=== PATIENT | female | born 2000 | race African-American/Black ===

== ENCOUNTER 2019-06-04 17:37 | Emergency (ER) | payer OTHER ==
[~2019-06-04] VITALS: Ht 162.6 cm; Wt 96.1 kg
[2019-06-04 17:38] VITALS: BP 112/68
[2019-06-04] MEDS ORDERED: KETOROLAC TROMETHAMINE 10 MG TAB PO ONE (18:45)
[2019-06-04] MEDS ORDERED: BACT800T5 PO (19:51)
[2019-06-04] MEDS ORDERED: DIFL150T PO (21:40)
== END 2019-06-04 20:14 | disposition home or self-care (01) ==
LOC: M ED 17:37
DX: N39.0 Urinary tract infection, site not specified (principal)

== ENCOUNTER 2019-08-06 19:25 | Emergency (ER) | payer OTHER ==
[~2019-08-06] VITALS: Ht 162.6 cm; Wt 96.4 kg
[~2019-08-06 19:25] MED LIST: BACT800T5 PO; DIFL150T PO
[2019-08-06 20:38] LABS: MONO REFLEX EBV COMP NEGATIVE (NEGATIVE)
[2019-08-06 20:56] VITALS: BP 138/82
[2019-08-06] MEDS ORDERED: IBUPROFEN 600 MG TAB PO ONE (21:00)
[2019-08-10 00:07] LABS: EBV AB TO NUCLEAR ANTIGEN >600.0 U/mL (0.0-17.9); EBV VIRAL CAPSID AG IgG 91.6 U/mL (0.0-17.9); EBV VIRAL CAPSID AG IgM <36.0 U/mL (0.0-35.9)
== END 2019-08-06 21:04 | disposition home or self-care (01) ==
LOC: M ED 19:25
DX: J02.9 Acute pharyngitis, unspecified (principal)

== ENCOUNTER 2019-08-08 16:27 | Emergency (ER) | payer OTHER ==
[~2019-08-08] VITALS: Ht 162.6 cm; Wt 96.6 kg
[2019-08-08 16:27] VITALS: BP 128/85
[2019-08-08] MEDS ORDERED: PENI500T PO (18:06)
[2019-08-08] MEDS ORDERED: BENA25CA4 PO (18:07)
[2019-08-08] MEDS ORDERED: PENICILLIN V POTASSIUM 500 MG TAB PO ONE (18:15)
[2019-08-08] MEDS ORDERED: diphenhydrAMINE 50 MG CAP PO ONE (18:15)
== END 2019-08-08 18:21 | disposition home or self-care (01) ==
LOC: M ED 16:27
DX: J02.0 Streptococcal pharyngitis (principal); B09 Unspecified viral infection characterized by skin and mucous membrane lesions

== ENCOUNTER 2019-09-11 15:19 | Emergency (ER) | payer OTHER ==
[~2019-09-11] VITALS: Ht 162.6 cm; Wt 97.5 kg
[~2019-09-11 15:19] MED LIST changes: +BENA25CA4 PO; +PENI500T PO
[2019-09-11] MEDS ORDERED: DIFL150T PO (16:15)
[2019-09-11 16:48] VITALS: BP 131/69
[2019-09-11 17:43] LABS: CHLAMYDIA DNA AMPLIFICATION NEGATIVE (NEGATIVE); GC DNA AMPLIFICATION NEGATIVE (NEGATIVE)
== END 2019-09-11 16:49 | disposition home or self-care (01) ==
LOC: M ED 15:19
DX: B37.3 Candidiasis of vulva and vagina (principal); E28.2 Polycystic ovarian syndrome

== ENCOUNTER 2020-01-04 07:40 | Emergency (ER) | payer OTHER ==
[2020-02-13 13:53] LABS: CHLAMYDIA DNA AMPLIFICATION NEGATIVE (NEGATIVE); GC DNA AMPLIFICATION NEGATIVE (NEGATIVE)
[2020-02-19 07:49] LABS: BASO % 0.3 % (0.0-1.0); EOS # 0.3 10^3/uL (0.0-0.5); EOS % 2.6 % (0.0-3.0); HEMATOCRIT 41.8 % (36.0-47.0); HEMOGLOBIN 13.4 g/dl (12.0-15.5); LYMPH # 2.5 10^3/uL (1.5-5.0); LYMPH % 20.4 % (24.0-44.0); MEAN CORPUSCULAR HEMOGLOBIN 27.1 pg (27.0-33.0); MEAN CORPUSCULAR HGB CONC 32.1 g/dl (32.0-36.5); MEAN CORPUSCULAR VOLUME 84.6 fl (80.0-96.0); MONO # 0.5 10^3/uL (0.0-0.8); MONO % 4.4 % (0.0-5.0); NEUTROPHILS # 8.7 10^3/uL (1.5-8.5); NEUTROPHILS % 72.1 % (36.0-66.0); PLATELET COUNT, AUTOMATED 336 10^3/uL (150-450); RED BLOOD COUNT 4.94 10^6/uL (4.00-5.40)
[2020-02-19 08:54] LABS: APPEARANCE, URINE CLOUDY (CLEAR); BACTERIA, URINE AUTO NEGATIVE (NEGATIVE); BILIRUBIN, URINE AUTO NEGATIVE (NEGATIVE); BLOOD, URINE BLOOD 3+ (NEGATIVE); COLOR, URINE YELLOW (YELLOW); GLUCOSE, URINE (UA) AUTO NEGATIVE (NEGATIVE); KETONE, URINE AUTO NEGATIVE (NEGATIVE); LEUKOCYTE ESTERASE, URINE AUTO 3+ (NEGATIVE); MUCUS, URINE SMALL (NEGATIVE); NITRITE, URINE AUTO NEGATIVE (NEGATIVE); PROTEIN, URINE AUTO NEGATIVE (NEGATIVE); RBC, URINE AUTO 11 /HPF (0-3); SPECIFIC GRAVITY URINE AUTO 1.003 (1.002-1.035); SQUAMOUS EPITHELIAL CELL UR AU 2 /HPF (0-6); UROBILINOGEN, URINE AUTO 0.2 mg/dL (0.0-2.0); WBC, URINE AUTO TNTC /HPF (0-3)
[2020-03-15 14:07] LABS: HCG, SERUM QUALITATIVE NEGATIVE (NEGATIVE)
[2020-03-15 14:08] LABS: BLOOD UREA NITROGEN 6 MG/DL (7-18); CALCIUM LEVEL 9.4 MG/DL (8.5-10.1); CARBON DIOXIDE LEVEL 27 MEQ/L (21-32); CHLORIDE LEVEL 105 MEQ/L (98-107); CREATININE FOR GFR 0.69 MG/DL (0.55-1.30); GLOMERULAR FILTRATION RATE > 60.0 (>60); GLUCOSE, FASTING 84 MG/DL (70-100); HEPATITIS A ANTIBODY IGM NEGATIVE (NEGATIVE); HEPATITIS B CORE ANTIBODY IGM NEGATIVE (NEGATIVE); HEPATITIS B SURFACE ANTIGEN NEGATIVE (NEGATIVE); HEPATITIS C VIRUS ABY INDEX 0.2 INDEX (<0.8); HIV 1&2 SCREEN CENTAUR NEGATIVE (NEGATIVE); POTASSIUM SERUM 3.9 MEQ/L (3.5-5.1); SODIUM LEVEL 140 MEQ/L (136-145)
[2020-03-28] MEDS ORDERED: METF-877 PO (09:56)
== END 2020-01-04 14:15 | disposition home or self-care (01) ==
LOC: M ED 07:40
DX: N39.0 Urinary tract infection, site not specified (principal); N93.9 Abnormal uterine and vaginal bleeding, unspecified; N83.201 Unspecified ovarian cyst, right side; N83.202 Unspecified ovarian cyst, left side; Z97.5 Presence of (intrauterine) contraceptive device; Z91.013 Allergy to seafood; Z79.84 Long term (current) use of oral hypoglycemic drugs

== ENCOUNTER → 2020-01-25 | Outpatient (CLI) | payer OTHER ==
[~2020-01-25] MED LIST changes: +METF-877 PO
--- NOTE | 2020-02-22 13:14 | REP ---
NONCONTRAST HEAD CT: CLINICAL: Hyperprolactinemia TECHNIQUE: Axial noncontrast images from the skull base to the vertex with coronal reformations. FINDINGS: The ventricles, sulci and cisterns are symmetric and normal. Mendiola-white differentiation is maintained. No acute intracranial hemorrhage, mass or mass effect. No extra-axial fluid collection. The calvarium is intact. The paranasal sinuses and mastoid air cells are clear. Mid-brain structures are symmetric and normal. IMPRESSION: Normal noncontrast CT of the brain. MTDD
== END ==
LOC: M RAD 10:00
PROVIDERS: ATTEND Obstetrics & Gynecology
DX: E22.1 Hyperprolactinemia (principal)

== ENCOUNTER 2020-04-04 10:28 | Day surgery (SDC) | payer OTHER ==
[~2020-04-04] VITALS: Ht 162.6 cm; Wt 78.9 kg
[~2020-04-04 10:28] MED LIST changes: +LR 1,000 ML IV ONE
[2020-04-04 11:24] LABS: HEMATOCRIT 39.1 % (36.0-47.0); HEMOGLOBIN 12.5 g/dl (12.0-15.5); MEAN CORPUSCULAR HEMOGLOBIN 28.5 pg (27.0-33.0); MEAN CORPUSCULAR VOLUME 89.1 fl (80.0-96.0); PLATELET COUNT, AUTOMATED 324 10^3/uL (150-450); RED BLOOD COUNT 4.39 10^6/uL (4.00-5.40); WHITE BLOOD COUNT 6.9 10^3/uL (4.0-10.0)
[2020-04-04 11:35] LABS: BLOOD UREA NITROGEN 6 MG/DL (7-18); CALCIUM LEVEL 9.4 MG/DL (8.5-10.1); CARBON DIOXIDE LEVEL 26 MEQ/L (21-32); CHLORIDE LEVEL 108 MEQ/L (98-107); CREATININE FOR GFR 0.63 MG/DL (0.55-1.30); GLOMERULAR FILTRATION RATE > 60.0 (>60); GLUCOSE, FASTING 82 MG/DL (70-100); HCG, SERUM QUANTITATIVE < 1.0 MIU/ML; SODIUM LEVEL 140 MEQ/L (136-145)
[2020-04-04] MEDS ORDERED: LIDOCAINE 2% 100MG/5ML SDV (FOR ANES.) As Ordered ONE (13:24)
[2020-04-04] MEDS ORDERED: propofoL 200 MG/20 ML VIAL As Ordered ONE (13:24)
[2020-04-04] MEDS ORDERED: MIDAZOLAM INJ 2MG/2ML VIAL (J2250 PER 1MG) As Ordered ONE (13:24)
[2020-04-04] MEDS ORDERED: fentaNYL 100 MCG/2 ML INJECTION (J3010) As Ordered ONE ×3 (13:25→15:13)
[2020-04-04] MEDS ORDERED: BUPIVACAINE HCL 0.5% 10ML VIAL As Ordered ONE (13:35)
[2020-04-04] MEDS ORDERED: ACETAMINOPHEN 650 MG SUPP As Ordered ONE (13:35)
[2020-04-04] MEDS ORDERED: METHYLENE BLUE 0.5% (5MG/ML) 10 ML AMP (PROVAYBLUE) As Ordered ONE (13:35)
[2020-04-04] MEDS ORDERED: PARAGARD T380-A INTRAUTERINE DEVICE As Ordered ONE (13:35)
[2020-04-04] MEDS ORDERED: ROCURONIUM BROMIDE 50 MG/5 ML VIAL As Ordered ONE (13:50)
[2020-04-04] MEDS ORDERED: ESMOLOL INJ 100MG/10ML VIAL As Ordered ONE (14:08)
[2020-04-04] MEDS ORDERED: SUGAMMADEX SODIUM 500 MG/5 ML VIAL (BRIDION) As Ordered ONE (14:10)
[2020-04-04] MEDS ORDERED: ONDANSETRON 4MG/2ML VIAL As Ordered ONE (14:10)
[2020-04-04] MEDS ORDERED: dexameTHASONE 4 MG/ML 1ML VIAL (J1100 PER 1MG) As Ordered ONE (14:10)
[2020-04-04] MEDS ORDERED: KETOROLAC 60MG 2ML VIAL As Ordered ONE (14:10)
[2020-04-04] MEDS ORDERED: KETOROLAC 30 MG/ML 1ML VIAL IV PRN ×2 (14:48→16:15)
[2020-04-04] MEDS ORDERED: ONDANSETRON 4MG/2ML VIAL IV PRN (16:15)
[2020-04-04] MEDS ORDERED: LR 1,000 ML IV SCH (16:15)
[2020-04-04] MEDS ORDERED: METOCLOPRAMIDE INJ 10MG/2ML VIAL (J2765 PER 1) IV PRN (16:15)
[2020-04-04] MEDS ORDERED: fentaNYL 100 MCG/2 ML INJECTION (J3010) IV PRN (16:15)
[2020-04-04] MEDS ORDERED: PERCOCET 5MG/325MG TAB PO PRN (16:15)
[2020-04-04 17:30] VITALS: BP 117/69
--- NOTE | 2020-04-12 10:28 | RO ---
DATE OF OPERATION: 04/04/2020 PREOPERATIVE DIAGNOSIS: Persistent left lower quadrant pain and painful intrauterine contraceptive device (IUCD). POSTOPERATIVE DIAGNOSIS: Left ovarian cyst, simple, plus misplaced IUCD. OPERATION PROPOSED: Operative laparoscopy, possible left ovarian cystectomy and hysteroscopy, dilatation and curettage (D and C) removal and replacement of IUCD. OPERATION PERFORMED: Operative laparoscopy, aspiration of left ovarian cyst, and hysteroscopy, dilatation, removal of IUCD, and replacement of IUCD Mirena. ESTIMATED BLOOD LOSS: Less than 20 Ml. SURGEON: Dr. Mensah After adequate anesthesia, prepped and draped in the lithotomy position. Her catheter in the bladder draining clear urine. Acetaminophen suppository, 1300 mg per rectum. Sequentials in place. No antibiotics required. Weighed speculum in the vagina, single-tooth tenaculum on the anterior lip of cervix. Cervix was mobile but high up anteriorly. The strings of the IUCD were not visible. Uterine elevator was placed in the endocervical canal. Re-prepping and draping. Small subumbilical incision was made. Veress needle was applied. There was 3.8 liters of CO2 at a flow rate of 14 to a pressure of 15. Direct entry into the abdomen. No evidence of perforation, hemorrhage, or bleeding. Panoramic review. Right upper quadrant was normal. Liver edge was smooth. Left upper quadrant was normal. Right lower quadrant was normal. Right round ligament was normal. Uterus was anteverted, smooth, mobile, small. Anterior aspect of the bladder was clear. Left round ligament was normal. Left ovary showed a large cystic structure, which was the ovary incorporating a cyst, which is probably the etiology behind this lady's persistent left lower quadrant pain. The posterior cul-de-sac was clear. No evidence of adhesions or endometriosis. Patient did have some blood in the cul-de-sac, but she is presently menstruating. A 5 mm port was placed on the right side, and then with visualization a needle was placed into the cystic structure. We drained between 10-12 mL of clear fluid. The fluid was sent to pathology under separate cover. The ovary immediately deflated to almost normal size. It is larger on the left ovary than on the right ovary in spite of the fact it was deflated. It was mobile and no evidence of adhesion, endometriosis, or bleeding. With that done and with instrument and pad count correct, we aspirated the old blood from her period from the cul-de-sac. We then deflated to 4 mm pressure, removed the 5 mm port on the right side, removed the mainstem port, put subcuticular stitches in both areas. Marcaine 0.25% 10 mL to the appropriate sites and Steri-Strips were applied. Re-prepping and draping, the weighted speculum was placed in the vagina. The uterine elevator was removed. The cervix was dilated to a #7. Hysteroscope at a 30- degree angle was placed. With fluid, we irrigated and found that the IUCD was impinging on the left cornua. We removed the IUCD and replaced it with a copper IUCD. We cut the strings to 2 inches. With instrument and pad count correct, the hysteroscope was removed. We used 175 mL in, 175 mL out. Single-tooth tenaculum was removed. No evidence of active bleeding. The vagina was swept clean. The uterus was replaced in anatomical position. The Her catheter was removed, and the patient was sent to recovery in good condition. MERON
== END 2020-04-04 17:30 | disposition home or self-care (01) ==
LOC: M SDC 10:28
PROVIDERS: ATTEND Obstetrics & Gynecology
DX: N93.9 Abnormal uterine and vaginal bleeding, unspecified (principal); R10.2 Pelvic and perineal pain; E28.2 Polycystic ovarian syndrome; Z79.84 Long term (current) use of oral hypoglycemic drugs; Z91.018 Allergy to other foods; Z91.013 Allergy to seafood; Z91.011 Allergy to milk products
CPT/HCPCS: 36415; 49322; 58300; 58301; 58558; 80048; 84702; 85027; 88108; 88300; J1100; J1885; J2250; J2405; J3010; J7300; Q9968

== ENCOUNTER 2020-07-16 12:22 | Emergency (ER) | payer OTHER ==
[~2020-07-16] VITALS: Ht 162.6 cm; Wt 72.9 kg
[~2020-07-16 12:22] MED LIST changes: -LR 1,000 ML IV ONE
--- OUTSIDE RECORDS SUMMARY | 2020-07-16 12:28 | CCD ---
Author Author [facility] Organization [facility] Address Unknown Phone Unavailable Care Team Providers Care Government Instructor Name Role Phone Kenniff, P Jairon RPA-C Unavailable Unavailable Kenniff, P Jairon RPA-C Unavailable Unavailable Kenniff, P Jairon RPA-C Unavailable Unavailable Kenniff, P Jairon RPA-C Unavailable Unavailable Kenniff, P Jairon RPA-C Unavailable Unavailable Kenniff, P Jairon RPA-C Unavailable Unavailable Kenniff, P Jairon RPA-C Unavailable Unavailable Kenniff, P Jairon RPA-C Unavailable Unavailable Kenniff, P Jairon RPA-C Unavailable Unavailable Kenniff, P Jairon RPA-C Unavailable Unavailable Kenniff, P Jairon RPA-C Unavailable Unavailable Kenniff, P Jairon RPA-C Unavailable Unavailable Kenniff, P Jairon RPA-C Unavailable Unavailable Kenniff, P Jairon RPA-C Unavailable Unavailable Kenniff, P Jairon RPA-C Unavailable Unavailable Kenniff, P Jairon RPA-C Unavailable Unavailable Kenniff, P Jairon RPA-C Unavailable Unavailable Kenniff, P Jairon RPA-C Unavailable Unavailable Kenniff, P Jairon RPA-C Unavailable Unavailable Kenniff, P Jairon RPA-C Unavailable Unavailable Kenniff, P Jairon RPA-C Unavailable Unavailable Kenniff, P Jairon RPA-C Unavailable Unavailable DEMETRI FLETCHER MD Unavailable Unavailable DEMETRI FLETCHER MD Unavailable Unavailable Rk Barrios MD Unavailable Unavailable Rk Barrios MD Unavailable Unavailable Rk Barrios MD Unavailable Unavailable Rk Barrios MD Unavailable Unavailable Rk Barrios MD Unavailable Unavailable Rk Barrios MD Unavailable Unavailable Barrios, L Sanju COREAS Unavailable Unavailable Barrios, L Sanju COREAS Unavailable Unavailable Barrios, L Sanju COREAS Unavailable Unavailable Barrios, L Sanju COREAS Unavailable Unavailable Barrios, L Sanju COREAS Unavailable Unavailable Barrios, L Sanju COREAS Unavailable Unavailable Barrios, L Sanju COREAS Unavailable Unavailable Barrios, L Sanju COREAS Unavailable Unavailable Barrios, L Sanju COREAS Unavailable Unavailable Barrios, L Sanju COREAS Unavailable Unavailable Barrios, L Sanju COREAS Unavailable Unavailable Barrios, L Sanju COREAS Unavailable Unavailable Barrios, L Sanju COREAS Unavailable Unavailable Barrios, L Sanju COREAS Unavailable Unavailable Barrios, L Sanju COREAS Unavailable Unavailable Barrios, L Sanju COREAS Unavailable Unavailable Barrios, L Sanju COREAS Unavailable Unavailable Barrios, L Sanju COERAS Unavailable Unavailable Barrios, L Sanju COREAS Unavailable Unavailable Barrios, L Sanju COREAS Unavailable Unavailable Barrios, L Sanju OCREAS Unavailable Unavailable Barrios, L Sanju COREAS Unavailable Unavailable Barrios, L Sanju COREAS Unavailable Unavailable Barrios, L Sanju COREAS Unavailable Unavailable Barrios, L Sanju COREAS Unavailable Unavailable Barrios, L Sanju COREAS Unavailable Unavailable Barrios, L Sanju COREAS Unavailable Unavailable Barrios, L Sanju COREAS Unavailable Unavailable Barrios, L Sanju COREAS Unavailable Unavailable Barrios, L Sanju COREAS Unavailable Unavailable Barrios, L Sanju COREAS Unavailable Unavailable Barrios, L Sanju COREAS Unavailable Unavailable Barrios, L Sanju COREAS Unavailable Unavailable Barrios, L Sanju COREAS Unavailable Unavailable Barrios, L Sanju COREAS Unavailable Unavailable Barrios, L Sanju COREAS Unavailable Unavailable Barrios, L Sanju COREAS Unavailable Unavailable Barrios, L Sanju COREAS Unavailable Unavailable Barrios, Rk Bills MD Unavailable Unavailable Barrios, L Sanju COREAS Unavailable Unavailable Barrios, Rk Bills MD Unavailable Unavailable Barrios, Rk Bills MD Unavailable Unavailable Zo INGRAM MD Unavailable Unavailable Zo INGRAM MD Unavailable Unavailable Zo INGRAM MD Unavailable Unavailable Zo INGRAM MD Unavailable Unavailable Zo INGRAM MD Unavailable Unavailable Zo INGRAM MD Unavailable Unavailable Zo INGRAM MD Unavailable Unavailable Zo INGRAM MD Unavailable Unavailable Zo INGRAM MD Unavailable Unavailable Zo INGRAM MD Unavailable Unavailable Zo INGRAM MD Unavailable Unavailable Zo INGRAM MD Unavailable Unavailable Zo INGRAM MD Unavailable Unavailable Zo INGRAM MD Unavailable Unavailable Zo INGRAM MD Unavailable Unavailable Zo INGRAM MD Unavailable Unavailable Zo INGRAM MD Unavailable Unavailable Zo INGRAM MD Unavailable Unavailable Zo INGRAM MD Unavailable Unavailable Zo INGRAM MD Unavailable Unavailable Zo INGRAM MD Unavailable Unavailable Zo INGRAM MD Unavailable Unavailable Zo INGRAM MD Unavailable Unavailable Zo INGRAM MD Unavailable Unavailable Zo INGRAM MD Unavailable Unavailable Zo INGRAM MD Unavailable Unavailable Zo INGRAM MD Unavailable Unavailable Zo INGRAM MD Unavailable Unavailable Zo INGRAM MD Unavailable Unavailable Zo INGRAM MD Unavailable Unavailable Zo INGRAM MD Unavailable Unavailable Zo INGRAM MD Unavailable Unavailable Zo INGRAM MD Unavailable Unavailable Zo INGRAM MD Unavailable Unavailable Zo INGRAM MD Unavailable Unavailable Zo INGRAM MD Unavailable Unavailable Zo INGRAM MD Unavailable Unavailable Zo INGRAM MD Unavailable Unavailable Zo INGRAM MD Unavailable Unavailable Zo INGRAM MD Unavailable Unavailable Zo INGRAM MD Unavailable Unavailable Zo INGRAM MD Unavailable Unavailable Zo INGRAM MD Unavailable Unavailable Zo INGRAM MD Unavailable Unavailable Zo INGRAM MD Unavailable Unavailable Zo INGRAM MD Unavailable Unavailable Zo INGRAM MD Unavailable Unavailable Zo INGRAM MD Unavailable Unavailable Zo INGRAM MD Unavailable Unavailable Zo INGRAM MD Unavailable Unavailable Zo INGRAM MD Unavailable Unavailable Zo INGRAM MD Unavailable Unavailable Zo INGRAM MD Unavailable Unavailable Zo INGRAM MD Unavailable Unavailable Zo INGRAM MD Unavailable Unavailable Zo INGRAM MD Unavailable Unavailable Zo INGRAM MD Unavailable Unavailable Zo INGRAM MD Unavailable Unavailable Zo INGRAM MD Unavailable Unavailable Zo INGRAM MD Unavailable Unavailable Zo INGRAM MD Unavailable Unavailable Zo INGRAM MD Unavailable Unavailable Zo INGRAM MD Unavailable Unavailable Zo INGRAM MD Unavailable Unavailable Zo INGRAM MD Unavailable Unavailable Zo INGRAM MD Unavailable Unavailable Zo INGRAM MD Unavailable Unavailable Zo INGRAM MD Unavailable Unavailable Zo INGRAM MD Unavailable Unavailable Zo INGRAM MD Unavailable Unavailable Zo INGRAM MD Unavailable Unavailable oZ INGRAM MD Unavailable Unavailable Zo INGRAM MD Unavailable Unavailable Re-disclosure Warning The records that you are about to access may contain information from federally-assisted alcohol or drug abuse programs. If such information is present, then the following federally mandated warning applies: This information has been disclosed to you from records protected by federal confidentiality rules (42 CFR part 2). The federal rules prohibit you from making any further disclosure of this information unless further disclosure is expressly permitted by the written consent of the person to whom it pertains or as otherwise permitted by 42 CFR part 2. A general authorization for the release of medical or other information is NOT sufficient for this purpose. The Federal rules restrict any use of the information to criminally investigate or prosecute any alcohol or drug abuse patient.The records that you are about to access may contain highly sensitive health information, the redisclosure of which is protected by Article 27-F of the [facility] Public Health law. If you continue you may have access to information: Regarding HIV / AIDS; Provided by facilities licensed or operated by the [facility] Office of Mental Health; or Provided by the [facility] Office for People With Developmental Disabilities. If such information is present, then the following [facility] mandated warning applies: This information has been disclosed to you from confidential records which are protected by state law. State law prohibits you from making any further disclosure of this information without the specific written consent of the person to whom it pertains, or as otherwise permitted by law. Any unauthorized further disclosure in violation of state law may result in a fine or residential sentence or both. A general authorization for the release of medical or other information is NOT sufficient authorization for further disc losure. Encounters Encounter Providers Location Date Indications Data Source(s ) Outpatient Attender: NATE Delgado: Jairon carbajal RPA-Berry 08/09/2020 12:00:00 AM [facility] Outpatient Attender: NATE Delgado: Jairon CALDWELL 07/04/2020 12:00:00 AM [facility] Outpatient Attender: NATE Delgado: Jairon CALDWELL 07/03/2020 12:00:00 AM [facility] Outpatient Attender: NATE INGRAM MD 06/21/2020 12:00:00 A [facility] Outpatient Attender: Sanju Barrios MD Physical Therapy 05/09/2020 0 9:15:00 AM EST [facility] ([facility]) Outpatient Attender: Sanju Barrios MD Physical Therapy 03/14/2020 0 1:00:00 PM EDT [facility] ([facility]) OFFICE OUTPATIENT NEW 30 MINUTES Attender: Sanju Barrios MD Physic al Therapy 02/01/2020 12:00:00 PM EDT [facility] ([facility]) Outpatient Attender: DEMETRI FLETCHER MD 09:09:00 AM EDT - 01/10/2020 10:09:00 AM EDT [facility] Insurance Providers Payer name Policy type / Coverage type Policy ID Covered democrat ID Covered democrat's relationship to greer Policy Greer Plan Information [employer] [id number] SP [id number] U [id number] Self [id number] U [id number] Self [id number] U [id number] Self [id number] EAST HUMANA - O/P [id number] 18 [id number] Problems, Conditions, and Diagnoses Code Display Name Description Problem Type Effective Dates Data Source(s) J72490 Pain in left hip Pain in left hip Diagnosis 01/10/2020 09 :09:00 AM EDT [facility] [id number] Pain in right hip Pain in right hip Diagnosis 01/10/2020 09:09:00 AM EDT [facility] Surgeries/Procedures Procedure Description Date Indications Data Source(s) INJECTION 1 TENDON SHEATH/LIGAMENT APONEUROSIS 020 12:00:00 AM EDT [facility] ([facility]) Results ID Date Data Source [id number] 06/14/2020 09:35:00 AM EST [facility] Name Value Range Interpretation Code Description Data Jennifer rce(s) Supporting Document(s) SARS coronavirus 2 RNA Not Detected [facility] This lab was ordered by [facility] Laboratory and reported by [facility]. ID Date Data Source [id number] 01/13/2020 09:53:00 AM EDT [facility] [address] [place] [address] PHONE: [phone] FAX: [phone] Name .................. : HIRAM Canas [facility] Number.................. : [id number] ROOM. ................. : Number ................... : [id number] Stay type ............. : O/P Discharge Date......... ... : 01/10/20 Admit Date ....... .. : 01/10/20 Admit Phys .................... : FLETCHER COR Date of ....... : 2000 Family Phys ................... : UNKNOWN CO Phone .................. : [phone] Age ................................ : 19 Film# .................. .:[id number] Sex ................................. : F Unsigned transcriptions are preliminary reports and do not represent a medical or legal document MRI LOWER EXT ANY JT W CONT R [id number] COMPLETE:01/10/20 12:08 [facility] [id number] (REASON FOR PROCESS: PAIN MRI OF THE RIGHT HIP WITH CONTRAST: FINDINGS: Prior to the MRI, the patient underwent a hip arthrogram. Multiple imaging of the hip was acquired. No evidence of a fracture or dislocation. The labrum is unremarkable. No abnormal marrow signal. No evidence of any osseous or soft tissue abnormality. Surrounding musculature is unremarkable. IMPRESSION: Unremarkable MRI right hip with intra-articular c ontrast. No labral injury. No loose body. No osseous abnormality. Electronically Reviewed and Signed By Nate Ortiz MD , 01/13/20 09:53, ADALID Transcribe Initials: RAQUEL , Transcribe Date: 01/10/20 22:41, Dictation Date: Copy for: JUSTINE MOSQUERA Copy for: [facility] REC Page 1 of 1 Name Value Range Interpretation Code Description Data Jennifer rce(s) Supporting Document(s) ID Date Data Source [id number] 01/13/2020 09:14:00 AM EDT [facility] [address] [place] [address] PHONE: [phone] FAX: [phone] Name .................. : HIRAM Canas Acct Number.................. : [id number] ROOM. ................. : MR Number ................... : [id number] Stay type ............. : O/P Discharge Date......... ... : 01/10/20 Admit Date ....... .. : 01/10/20 Admit Phys .................... : FLETCHER COR Date of ....... : 2000 Family Phys ................... : UNKNOWN CO Phone .................. : [phone] Age ................................ : 19 Film# .................. .:[id number] Sex ................................. : F Unsigned transcriptions are preliminary reports and do not represent a medical or legal document MRI LOWER EXT ANY JT W CONT [id number] COMPLETE:01/10/20 12:08 [facility] [address]441 (REASON FOR PROCESS: PAIN MRI LEFT HIP WITH CONTRAST, 01/10/20: FINDINGS: Imaging was performed following intraarticular gadolinium administration. Fracture, destructive osseous lesion, or osteonecrosis is not identified. Musculotendinous structures adjacent to the left hip are unremarkable. There is no bursal fluid collection. Labral tear is not identified. IMPRESSION: Unremarkable MRI of the left hip after intraarticular gadolinium administration. Electronically Reviewed and Signed By Ivonne Morelos MD , 01/13/20 09:14, KGMartinez Transcribe Initials: JHOANA, Transcribe Date: 01/11/20 11:56, Dictation Date: Copy for: JUSTINE MOSQUERA Copy for: [address] [place] [address] REC Page 1 of 1 Name Value Range Interpretation Code Description Data Jennifer rce(s) Supporting Document(s) ID Date Data Source [id number] 01/13/2020 08:57:00 [place] [address] PHONE: [phone] FAX: [phone] Name .................. : HIRAM Canas Acct Number.................. : [id number] ROOM. ................. : MR Number ................... : [id number] Stay type ............. : O/P Discharge Date......... ... : 01/10/20 Admit Date ....... .. : 01/10/20 Admit Phys .................... : JUSTINE SANTOS Date of ....... : 2000 Family Phys ................... : UNKNOWN CO Phone .................. : [phone] Age ................................ : 19 Film# .................. .:[id number] Sex ................................. : F Unsigned transcriptions are preliminary reports and do not represent a medical or legal document INJECTION FOR HIP ARTHROGRAM [id number] COMPLETE:01/10/20 10:39 [facility] [address] REASON FOR EXAM: PAIN INJECTION FOR HIP ARTHROGRAM [id number] COMPLETE:01/10/20 10:39 [facility] [address] REASON FOR EXAM: PAIN FLUOROSCOPIC GUIDANCE FOR NEEDLE PLACEMENT PRE-MRI ARTHROGRAM: HISTORY: Patient presents for bilateral MRI arthrograms of both hips. The injection procedure pre-MRI was explained to this patient. When questioning about allergies, she state that she had had swelling of the eyes, li ps and throat with seafood. Although a seafood allergy is not felt to be a contraindication at this time to the use of iodinated contrast as it had in the past been previous associations. I explained to her that it would be very unlikely for her to have an issue with the small amount of intra-articular contrast utilized for the MRI arthrogram. A small amount of iodinated contrast is utilized only to assure intra-articular position of the needle. I told her if she did have any of these or other allergy symptoms, she should inform us immediately and through both right and left hip injections, she felt fine. I told her to do the same with the MRI if she developed symptoms and if she had any issues post MRI arthrogram, that she should contact her physician or go to the ER as needed. She was agreeable to this. For the left and right hips, patient is prepped and draped in the usual fashion. Lidocaine is instilled into the skin and subcutaneous tissues down to the level of the left and right hip joints. Confirmation of intra-articular position of the needle in both the left and right hips is done first with a small amount of lidocaine and then with a small amount (about 2 cc) of nonionic contrast. After this, approximately 10-15 cc of Gadolinium mixture is instilled into the left and right hip joint. The needle was removed. The patient tolerated the bilateral procedure well. Fluoroscopy time for the left hip was 26 seconds and for the right hip was 1 minute 6 seconds. IMPRESSION: Satisfactory bilateral MRI contrast instillation for MRI arthrogram procedure, as described above. Patient tolerated the procedures well. Page 1 of 2 [facility] [address] [place] [address] PHONE: [phone] FAX: [phone] Name .................. : HIRAM Canas Acct Number.................. : [id number] ROOM. ................. : MR Number ................... : [id number] Stay type ............. : O/P Discharge Date......... ... : 01/10/20 Admit Date ......... : 01/10/20 Admit Phys .................... : JUSTINE SANTOS Date of ....... : 2000 Family Phys ................... : UNKNOWN CO Phone .................. : [phone] Age ................................ : 19 Film# .................. .:[id number] Sex ................................. : F Unsigned transcriptions are preliminary reports and do not represent a medical or legal document INJECTION FOR HIP ARTHROGRAM [id number] COMPLETE:01/10/20 10:39 [facility] [address] REASON FOR EXAM: PAIN INJECTION FOR HIP ARTHROGRAM [id number] COMPLETE:01/10/20 10:39 [facility] [address] REASON FOR EXAM: PAIN Please see additional comments as above. Electronically Reviewed and Signed By Xiomara Milligan MD , 01/13/20 08:57, LAD Transcribe Initials: DZ , Transcribe Date: 01/10/20 17:22, Dictation Date: Copy for: JUSTINE MOSQUERA Copy for: [address] [place] [address] REC Page 2 of 2 Name Value Range Interpretation Code Description Data Jennifer rce(s) Supporting Document(s) ID Date Data Source [id number] 01/13/2020 08:57:00 [place] [address] PHONE: [phone] FAX: [phone] Name .................. : HIRAM Canas Acct Number.................. : [id number] ROOM. ................. : MR Number ................... : [id number] Stay type ............. : O/P Discharge Date......... ... : 01/10/20 Admit Date ....... .. : 01/10/20 Admit Phys .................... : JUSTINE SANTOS Date of ....... : 2000 Family Phys ................... : UNKNOWN CO Phone .................. : [phone] Age ................................ : 19 Film# .................. .:[id number] Sex ................................. : F Unsigned transcriptions are preliminary reports and do not represent a medical or legal document INJECTION FOR HIP ARTHROGRAM [id number] COMPLETE:01/10/20 10:39 [facility] [address] REASON FOR EXAM: PAIN INJECTION FOR HIP ARTHROGRAM [id number] COMPLETE:01/10/20 10:39 [facility] [address] REASON FOR EXAM: PAIN FLUOROSCOPIC GUIDANCE FOR NEEDLE PLACEMENT PRE-MRI ARTHROGRAM: HISTORY: Patient presents for bilateral MRI arthrograms of both hips. The injection procedure pre-MRI was explained to this patient. When questioning about allergies, she state that she had had swelling of the eyes, li ps and throat with seafood. Although a seafood allergy is not felt to be a contraindication at this time to the use of iodinated contrast as it had in the past been previous associations. I explained to her that it would be very unlikely for her to have an issue with the small amount of intra-articular contrast utilized for the MRI arthrogram. A small amount of iodinated contrast is utilized only to assure intra-articular position of the needle. I told her if she did have any of these or other allergy symptoms, she should inform us immediately and through both right and left hip injections, she felt fine. I told her to do the same with the MRI if she developed symptoms and if she had any issues post MRI arthrogram, that she should contact her physician or go to the ER as needed. She was agreeable to this. For the left and right hips, patient is prepped and draped in the usual fashion. Lidocaine is instilled into the skin and subcutaneous tissues down to the level of the left and right hip joints. Confirmation of intra-articular position of the needle in both the left and right hips is done first with a small amount of lidocaine and then with a small amount (about 2 cc) of nonionic contrast. After this, approximately 10-15 cc of Gadolinium mixture is instilled into the left and right hip joint. The needle was removed. The patient tolerated the bilateral procedure well. Fluoroscopy time for the left hip was 26 seconds and for the right hip was 1 minute 6 seconds. IMPRESSION: Satisfactory bilateral MRI contrast instillation for MRI arthrogram procedure, as described above. Patient tolerated the procedures well. Page 1 of 2 [facility] [address] [place] [address] [place] [address] PHONE: [phone] FAX: [phone] Name .................. : HIRAM Canas Acct Number.................. : [id number] ROOM. ................. : Number ................... : [id number] Stay type ............. : O/P Discharge Date......... ... : 01/10/20 Admit Date ......... : 01/10/20 Admit Phys .................... : JUSTINE SANTOS Date of ....... : 2000 Family Phys ................... : UNKNOWN CO Phone .................. : [phone] Age ................................ : 19 Film# .................. .:[id number] Sex ................................. : F Unsigned transcriptions are preliminary reports and do not represent a medical or legal document INJECTION FOR HIP ARTHROGRAM [id number] COMPLETE:01/10/20 10:39 [facility] [address] REASON FOR EXAM: PAIN INJECTION FOR HIP ARTHROGRAM [id number] COMPLETE:01/10/20 10:39 [facility] [address] REASON FOR EXAM: PAIN Please see additional comments as above. Electronically Reviewed and Signed By Xiomara Milligan MD , 01/13/20 08:57, LAD Transcribe Initials: DZ , Transcribe Date: 01/10/20 17:22, Dictation Date: Copy for: JUSTINE BULLLIA Copy for: [facility] MED REC Page 2 of 2 Name Value Range Interpretation Code Description Data Jennifer rce(s) Supporting Document(s) ID Date Data Source [id number] 01/13/2020 08:56:00 AM EDT [facility] [address] [place] [address] PHONE: [phone] FAX: [phone] Name .................. : GANDHI GALINDO Canas Acct Number.................. : [id number] ROOM. ................. : MR Number ................... : [id number] Stay type ............. : O/P Discharge Date......... ... : 01/10/20 Admit Date ......... : 01/10/20 Admit Phys .................... : JUSTINE SANTOS Date of ....... : 2000 Family Phys ................... : UNKNOWN CO Phone .................. : [phone] Age ................................ : 19 Film# .................. .:[id number] Sex ................................. : F Unsigned transcriptions are preliminary reports and do not represent [place] [id number] COMPLETE:01/10/20 10:39 [facility] [address] (REASON FOR PELVIS: PAIN AP PELVIS: FINDINGS: Examination of the sales floor associate film shows an IUD in the mid-pelvis. The appearance of the bony structures of the pelvis and hips bilaterally are grossly unremarkable. The SI joints are patent and symmetrical as are the hip joints. Patient is to have bilateral hip arthrograms. Please see report of sales floor associate radiographs and injection procedure as well as the MRI evaluation of this patient for details. IMPRESSION: The study is a sales floor associate for bilateral MRI hip arthrograms. Please see the associated report for details. The appearance of the pelvis is grossly unremarkable, as described. Electronically Reviewed and Signed By Xiomara Milligan MD , 01/13/20 08:56, LENKA Transcribe Initials: RAQUEL , Transcribe Date: 01/10/20 15:52, Dictation Date: Copy for: JUSTINE MOSQUERA Copy for: 710 [facility] Page 1 of 1 Name Value Range Interpretation Code Description Data Jennifer rce(s) Supporting Document(s) Procedure Vital Signs ID Date Data Source UNK Name Value Range Interpretation Code Description Data Source(s) Body mass index (BMI) [Ratio] 31.8 kg/m2 31.8 k g/m2 [facility] ([facility]) Body weight 185.00 [lb_av] 185.00 [lb_av] MEDEN T ([facility]) Body height 64 [in_i] 64 [in_i] [facility] ([facility]) 5'4" Body temperature 96.2 [degF] 96.2 [degF] [facility] ([facility])
--- OUTSIDE RECORDS SUMMARY | 2020-07-16 12:28 | CCD | Continuity of Care Document ---
Author Author Anitha RADFORD MD Organization Unknown Address [address] [address] Phone [phone] Care Team Providers Care Senior Media Buyer Name Role Phone Laura Hopkins PA-CM [phone] Problems Description No Information Available Social History Type Date Description Comments Sex Unknown ETOH Use Rarely consumes alcohol Tobacco Use Start: Unknown Patient has never smoked Allergies, Adverse Reactions, Alerts Active Allergies Reaction Severity Comments Date Shellfish-Derived Products 0 02/01/2020 Medications Active Medications SIG Qnty Indications Ordering Provide r Date Tizanidine HCL 2mg Tablets Steve Larsen FNP Naproxen 375mg Tablets Steve Larsen FNP Lidocaine 5% Patches Steve Larsen FNP Epinephrine 0.3mg/0. 3ML Solution Auto-Inject La Nena Brooke F NP TGT Allergy Relief 25mg Capsules La Nena Brooke FNP Sore Throat 15-3.6mg Lozenges Unknown Sore Throat [place] 1.4% Liquid Unknown Acetaminophen 325mg Tablets Unknown Levonorgestrel 1.5mg Tablets Unknown Metformin HCL 500mg Tablets Olena Klein MD,MPH Mirena (52 MG) 20mcg/24HR IUD Olena Klein MD,MPH Montelukast Sodium 10mg Tablets La Nena Brooke FNP Deep Sea Nasal [place] 0.65% Solution La Nena Brooke, WAGON DRIVER SALESPERSON Cetirizine HCL 10mg Tablets La Nena Brooke, WAGON DRIVER SALESPERSON Metformin HCL 1000mg Tablets Olena Klein MD,MPH Ibuprofen 200mg Tablets Unknown Nitrofurantoin Monohydrate/Macrocrystals 100mg Capsules Mabel Colmenares PA-C Ondansetron HCL 4mg Tablets Steve Nichols PA-C Immunizations Description No Information Available Vital Signs Date Vital Result Comment 02/01/2020 12:10pm Body Temperature 96.2 F Height 64 inches 5'4" Weight 185.00 lb BMI (Body Mass Index) 31.8 kg/m2 Results Description No Information Available Procedures Date Code Description Status 02/01/2020 81889 Inject Tendon Sheath, Ligament C ompleted Medical Devices Description No Information Available Encounters Type Date Location Provider Dx Diagnosis Office Visit 05/09/2020 10:15a Kennertelma Radford MD M77.8 Other enthesopathies, not elsewhere classified Office Visit 03/14/2020 1:00p Kennertelma Radford MD M77.8 Other enthesopathies, not elsewhere classified Office Visit 02/01/2020 12:00p [place] Sanju Radford MD M67.431 Ganglion, right wrist Assessments Date Code Description Provider 05/09/2020 M77.8 Other enthesopathies, not elsewh ere classified Sanju Radford MD 03/14/2020 M77.8 Other enthesopathies, not elsewh ere classified Sanju Radford MD 03/14/2020 M77.8 Other enthesopathies, not elsewh ere classified Sanju Radford MD 02/01/2020 M67.431 Ganglion, right wrist Sanju angeles MD Plan of Treatment 05/09/2020 - Sanju Radford MD* M77.8 Other enthesopathies, not elsewhere classified* Follow up:* prn Functional Status Description No Information Available Mental Status Description No Information Available Referrals Refer to Reason for Referral Status Appt Date Sanju Radford MD DME APOLLO WRIST BRACE NO AUTH REQUIRED PER WEB. LS Created [address] [facility], [address] [address] [phone] Oliver Caballero MD GANGLION RIGHT WRIST Created [address] [place] [address] [phone] Oliver Caballero MD GANGLION RIGHT WRIST Created [address] [place] [address] [phone]
--- OUTSIDE RECORDS SUMMARY | 2020-07-16 12:28 | CCD | Continuity of Care Document ---
Author Author Anitha RADFORD MD Organization Unknown Address [address] [address] Phone [phone] Care Team Providers Care Stripping And Booking Machine Operator Name Role Phone Laura Hopkins PA-C AUTM [phone] Problems Description No Information Available Social History [...] Larsen FNP Lidocaine 5% Patches Steve Larsen ERP ANALYST Epinephrine 0.3mg/0. 3ML Solution Auto-Inject La Nena Brooke F NP TGT Allergy Relief 25mg Capsules La Nena Brooke FNP Sore Throat 15-3.6mg Lozenges Unknown Sore Throat [place] 1.4% Liquid Unknown Acetaminophen 325mg Tablets Unknown Levonorgestrel 1.5mg Tablets Unknown Metformin HCL 500mg Tablets Olena Klein MD,MPH Mirena (52 MG) 20mcg/24HR IUD Olena Klein MD,MPH Montelukast Sodium 10mg Tablets La Nena Brooke FNP Deep Sea Nasal [place] 0.65% Solution La Nena Brooke, ERP ANALYST Cetirizine HCL 10mg Tablets La Nena Brookera, ERP ANALYST Metformin HCL 1000mg Tablets Olena Klein MD,MPH [...] Available Procedures Date Code Description Status 02/01/2020 Inject Tendon Sheath, Ligament C ompleted Medical Devices Description No Information Available Encounters Type Date Location Provider Dx Diagnosis Office Visit 03/14/2020 1:00p [place] Sanju Radford MD M77.8 Other enthesopathies, not elsewhere classified Office Visit 02/01/2020 12:00p [place] Sanju Radford MD M67.431 Ganglion, right wrist [...] MD* M77.8 Other enthesopathies, not elsewhere classified* New Orders:* Referral, Ordered: 05/09/20 * Follow up:* prn Functional Status Description No Information Available Mental Status Description No Information Available Referrals Refer to Reason for Referral Status Appt Date Sanju Radford MD DME APOLLO WRIST BRACE NO AUTH REQUIRED PER WEB. LS Created [address] [facility], [address] [place] [address] [phone] Oliver Caballero MD GANGLION RIGHT WRIST Created [address] [facility], [facility] [address] [place] [address] [phone] Oliver Caballero MD GANGLION RIGHT WRIST Created [address] [place] [address], [facility] [address] [place] [address] [phone]
[2020-07-16] MEDS ORDERED: FLAG500T PO (13:52)
[2020-07-16] MEDS ORDERED: DIFL200T PO (13:58)
--- OUTSIDE RECORDS SUMMARY | 2020-07-16 14:11 | CCD ---
Author Author [facility] Organization [facility] Address Unknown Phone Unavailable Care Team Providers Care Wringer Operator Name Role Phone Kenemmaff, Calvin Jairon RPA-C Unavailable Unavailable Kenniff, P Jairon [...] Unavailable Unavailable Kenniff, P Jairon RPA-C Unavailable DEMETRI Amin MD Unavailable Unavailable DEMETRI FLETCHER MD Unavailable [...] Unavailable Barrios, L Sanju COREAS Unavailable Unavailable Abrrios, L Sanju COREAS Unavailable Unavailable Barrios, L [...] Unavailable Barrios, L Sanju COREAS Unavailable Unavailable Zo INGRAM MD Unavailable Unavailable Zo INGRAM MD Unavailable Unavailable Zo INGRAM MD Unavailable Unavailable Zo INGRAM MD Unavailable Unavailable Zo INGRAM MD Unavailable Unavailable Zo INGRAM MD Unavailable Unavailable Zo INGRAM MD Unavailable Unavailable Zo INGRAM MD Unavailable Unavailable Zo INGRAM MD Unavailable Unavailable Zo INGRAM MD Unavailable Unavailable Zo NIGRAM MD Unavailable Unavailable Zo INGRAM MD Unavailable [...] is protected by Article 27-F of the [facility] Public Health law. If you continue you may have access to information: Regarding HIV / AIDS; Provided by facilities licensed or operated by the [facility] Office of Mental Health; or Provided by the [facility] Office for People With Developmental Disabilities. If such information is present, then the following [facility] mandated warning applies: This information has been [...] law may result in a fine or retirement sentence or both. A general authorization for the release of medical or other information is NOT sufficient authorization for further disc losure. Encounters Encounter Providers Location Date Indications Data Source(s ) Outpatient Attender: NATE Delgado: Jairon carbajal RPA-Berry 08/09/2020 12:00:00 AM [facility] Outpatient Attender: NATE Delgado: Jairon CALDWELL 07/04/2020 12:00:00 AM [facility] Outpatient Attender: NATE Delgado: Jairon carbajal RPA-Berry 07/03/2020 12:00:00 AM [facility] Outpatient Attender: NATE INGRAM MD 06/21/2020 12:00:00 A [facility] Outpatient Attender: Sanju Barrios MD Physical Therapy 05/09/2020 0 9:15:00 AM EST [facility] ([facility]) Outpatient Attender: Sanju Barrios MD Physical Therapy 03/14/2020 0 1:00:00 PM EDT [facility] ([facility]) OFFICE OUTPATIENT NEW 30 MINUTES Attender: Sanju Barrios MD Physic al Therapy 02/01/2020 12:00:00 PM EDT [facility] ([facility]) Outpatient Attender: DEMETRI FLETCHER MD 09:09:00 AM EDT - 01/10/2020 10:09:00 AM EDT [facility] Insurance Providers Payer name Policy type / Coverage type Policy ID Covered libertarian ID Covered libertarian's relationship to greer Policy Greer Plan Information [employer] [id number] SP [id number] U [id number] Self [id number] U [id number] Self [id number] U [id number] Self [id number] [place] - O/P [id number] 18 [id number] Problems, Conditions, and Diagnoses Code Display Name Description Problem Type Effective Dates Data Source(s) A51800 Pain in left hip Pain in left hip Diagnosis 01/10/2020 09 :09:00 AM EDT [facility] J72517 Pain in right hip Pain in right hip Diagnosis 01/10/2020 09:09:00 AM EDT [facility] Surgeries/Procedures Procedure Description Date Indications Data Source(s) INJECTION 1 TENDON SHEATH/LIGAMENT APONEUROSIS 020 12:00:00 AM EDT [facility] ([facility]) Results ID Date Data Source [id number] 06/14/2020 09:35:00 AM EST [facility] Name Value Range Interpretation Code Description Data Jennifer rce(s) Supporting Document(s) SARS coronavirus 2 RNA Not Detected [facility] This lab was ordered by [facility] Laboratory and reported by [facility]. ID Date Data Source [id number] 01/13/2020 09:53:00 AM EDT [facility] [address] [place] [address] PHONE: [phone] FAX: [phone] Name .................. : HIRAM Canas [facility] Number.................. : [id number] ROOM. ................. : Number ................... : [id number] Stay type ............. : O/P Discharge Date......... ... : 01/10/20 Admit Date ....... .. : 01/10/20 Admit Phys .................... : FLETCHER COR Date of ....... : 2000 Family Phys ................... : UNKNOWN CO Phone .................. : [phone] Age ................................ : 19 Film# .................. .:[id number] Sex ................................. : F Unsigned transcriptions are preliminary reports and do not represent a medical or legal document MRI LOWER EXT ANY JT W CONT R [id number] COMPLETE:01/10/20 12:08 [facility] [id number] (REASON FOR PROCESS: PAIN MRI OF THE [...] MD , 01/13/20 09:53, ADALID Transcribe Initials: DZ , Transcribe Date: 01/10/20 22:41, Dictation Date: Copy for: JUSTINE MOSQUERA Copy for: [address] [facility] REC Page 1 of 1 Name Value Range Interpretation Code Description Data Jennifer rce(s) Supporting Document(s) ID Date Data Source [id number] 01/13/2020 09:14:00 AM EDT [facility] [address] [place] [address] PHONE: [phone] FAX: [phone] Name .................. : HIRAM Canas Acct Number.................. : [id number] ROOM. ................. : MR Number ................... : [id number] Stay type ............. : O/P Discharge Date......... ... : 01/10/20 Admit Date ....... .. : 01/10/20 Admit Phys .................... : JUSTINE SANTOS Date of ....... : 2000 Family Phys ................... : UNKNOWN CO Phone .................. : [phone] Age ................................ : 19 Film# .................. .:[id number] Sex ................................. : F Unsigned transcriptions are preliminary reports and do not represent a medical or legal document MRI LOWER EXT ANY JT W CONT [id number] COMPLETE:01/10/20 12:08 [facility] [id number] (REASON FOR PROCESS: PAIN MRI LEFT HIP [...] MD , 01/13/20 09:14, KGMartinez Transcribe Initials: SSR, Transcribe Date: 01/11/20 11:56, Dictation Date: Copy for: JUSTINE MOSQUERA Copy for: [address] [place] [address] REC Page 1 of 1 Name Value Range Interpretation Code Description Data Jennifer rce(s) Supporting Document(s) ID Date Data Source [id number] 01/13/2020 08:57:00 [place] [address] PHONE: [phone] FAX: [phone] Name .................. : HIRAM Canas Acct Number.................. : [id number] ROOM. ................. : MR Number ................... : [id number] Stay type ............. : O/P Discharge Date......... ... : 01/10/20 Admit Date ....... .. : 01/10/20 Admit Phys .................... : FLETCHER COR Date of ....... : 2000 Family Phys ................... : UNKNOWN CO Phone .................. : [phone] Age ................................ : 19 Film# .................. .:[id number] Sex ................................. : F Unsigned transcriptions are preliminary reports and do not represent a medical or legal document INJECTION FOR HIP ARTHROGRAM [id number] COMPLETE:01/10/20 10:39 [facility] [id number] REASON FOR EXAM: PAIN INJECTION FOR HIP ARTHROGRAM [id number] COMPLETE:01/10/20 10:39 [facility] [address] REASON FOR EXAM: PAIN FLUOROSCOPIC GUIDANCE FOR [...] the procedures well. Page 1 of 2 [facility] [address] [place] [address] PHONE: [phone] FAX: [phone] Name .................. : HIRAM MEDLEY Floresita Acct Number.................. : [id number] ROOM. ................. : Number ................... : [id number] Stay type ............. : O/P Discharge Date......... ... : 01/10/20 Admit Date ......... : 01/10/20 Admit Phys .................... : JUSTINE SANTOS Date of ....... : 2000 Family Phys ................... : UNKNOWN CO Phone .................. : [phone] Age ................................ : 19 Film# .................. .:[id number] Sex ................................. : F Unsigned transcriptions are preliminary reports and do not represent a medical or legal document INJECTION FOR HIP ARTHROGRAM [id number] COMPLETE:01/10/20 10:39 [facility] [address] REASON FOR EXAM: PAIN INJECTION FOR HIP ARTHROGRAM [id number] COMPLETE:01/10/20 10:39 [facility] [id number] REASON FOR EXAM: PAIN Please see additional comments as above. Electronically Reviewed and Signed By Xiomara Milligan MD , 01/13/20 08:57, LAD Transcribe Initials: DZ , Transcribe Date: 01/10/20 17:22, Dictation Date: Copy for: JUSTINE MOSQUERA Copy for: [address] [place] [address] REC Page 2 of 2 Name Value Range Interpretation Code Description Data Jennifer rce(s) Supporting Document(s) ID Date Data Source [id number] 01/13/2020 08:57:00 [place] [address] PHONE: [phone] FAX: [phone] Name .................. : HIRAM Canas Acct Number.................. : [id number] ROOM. ................. : MR Number ................... : [id number] Stay type ............. : O/P Discharge Date......... ... : 01/10/20 Admit Date ....... .. : 01/10/20 Admit Phys .................... : JUSTINE SANTOS Date of ....... : 2000 Family Phys ................... : UNKNOWN CO Phone .................. : [phone] Age ................................ : 19 Film# .................. .:[id number] Sex ................................. : F Unsigned transcriptions are preliminary reports and do not represent a medical or legal document INJECTION FOR HIP ARTHROGRAM [id number] COMPLETE:01/10/20 10:39 [facility] [id number] REASON FOR EXAM: PAIN INJECTION FOR HIP ARTHROGRAM 46004 COMPLETE:01/10/20 10:39 [facility] [address] REASON FOR EXAM: PAIN FLUOROSCOPIC GUIDANCE FOR [...] the procedures well. Page 1 of 2 [facility] [address] [place] [address] [place] [address] PHONE: [phone] FAX: [phone] Name .................. : HIRAM Canas Acct Number.................. : [id number] ROOM. ................. : Number ................... : [id number] Stay type ............. : O/P Discharge Date......... ... : 01/10/20 Admit Date ......... : 01/10/20 Admit Phys .................... : JUSTINE SANTOS Date of ....... : 2000 Family Phys ................... : UNKNOWN CO Phone .................. : [phone] Age ................................ : 19 Film# .................. .:[id number] Sex ................................. : F Unsigned transcriptions are preliminary reports and do not represent a medical or legal document INJECTION FOR HIP ARTHROGRAM [id number] COMPLETE:01/10/20 10:39 [facility] [id number] REASON FOR EXAM: PAIN INJECTION FOR HIP ARTHROGRAM [id number] COMPLETE:01/10/20 10:39 [facility] [id number] REASON FOR EXAM: PAIN Please see additional comments as above. Electronically Reviewed and Signed By Xiomara Milligan MD , 01/13/20 08:57, LAD Transcribe Initials: RAQUEL , Transcribe Date: 01/10/20 17:22, Dictation Date: Copy for: JUSTINE BULLLIA Copy for: [facility] Page 2 of 2 Name Value Range Interpretation Code Description Data Jennifer rce(s) Supporting Document(s) ID Date Data Source [id number] 01/13/2020 08:56:00 AM EDT [facility] [address] [place] [address] PHONE: [phone] FAX: [phone] Name .................. : HIRAM Canas Acct Number.................. : [id number] ROOM. ................. : MR Number ................... : [id number] Stay type ............. : O/P Discharge Date......... ... : 01/10/20 Admit Date ......... : 01/10/20 Admit Phys .................... : JUSTINE SANTOS Date of ....... : 2000 Family Phys ................... : UNKNOWN CO Phone .................. : [phone] Age ................................ : 19 Film# .................. .:[id number] Sex ................................. : F Unsigned transcriptions are preliminary reports and do not represent a [place] [id number] COMPLETE:01/10/20 10:39 [facility] [id number] (REASON FOR PELVIS: PAIN AP PELVIS: FINDINGS: Examination of the software development advisor film shows an IUD in the mid-pelvis. The appearance of the bony structures of the pelvis and hips bilaterally are grossly unremarkable. The SI joints are patent and symmetrical as are the hip joints. Patient is to have bilateral hip arthrograms. Please see report of software development advisor radiographs and injection procedure as well as the MRI evaluation of this patient for details. IMPRESSION: The study is a software development advisor for bilateral MRI hip arthrograms. Please see the associated report for details. The appearance of the pelvis is grossly unremarkable, as described. Electronically Reviewed and Signed By Xiomara Milligan MD , 01/13/20 08:56, LENKA Transcribe Initials: RAQUEL , Transcribe Date: 01/10/20 15:52, Dictation Date: Copy for: JUSTINE MOSQUERA Copy for: [address] [place] [address] Page 1 of 1 Name Value Range Interpretation Code Description Data Jennifer rce(s) Supporting Document(s) Procedure Vital Signs ID Date Data Source UNK Name Value Range Interpretation Code Description Data Source(s) Body mass index (BMI) [Ratio] 31.8 kg/m2 31.8 k g/m2 [facility] ([facility]) Body weight 185.00 [lb_av] 185.00 [lb_av] MEDEN T ([facility]) Body height 64 [in_i] 64 [in_i] [facility] ([facility]) 5'4" Body temperature 96.2 [degF] 96.2 [degF] [facility] ([facility])
[2020-07-16 14:15] VITALS: BP 116/66
[2020-07-16 15:11] LABS: CHLAMYDIA DNA AMPLIFICATION NEGATIVE (NEGATIVE); GC DNA AMPLIFICATION NEGATIVE (NEGATIVE)
== END 2020-07-16 14:16 | disposition home or self-care (01) ==
LOC: M ED 12:22
DX: N76.0 Acute vaginitis (principal); E28.2 Polycystic ovarian syndrome; Z91.011 Allergy to milk products; Z91.013 Allergy to seafood

== ENCOUNTER 2020-12-18 14:53 | Emergency (ER) | payer OTHER ==
[~2020-12-18] VITALS: Ht 162.6 cm; Wt 70.1 kg
[~2020-12-18 14:53] MED LIST changes: +DIFL200T PO; +FLAG500T PO
[2020-12-18 16:24] VITALS: BP 134/72
[2020-12-18 16:29] LABS: BASO % 0.5 % (0.0-1.0); EOS # 0.2 10^3/uL (0.0-0.5); EOS % 2.9 % (0.0-3.0); HEMATOCRIT 38.8 % (36.0-47.0); HEMOGLOBIN 12.3 g/dl (12.0-15.5); LYMPH % 39.3 % (24.0-44.0); MEAN CORPUSCULAR HGB CONC 31.7 g/dl (32.0-36.5); MEAN CORPUSCULAR VOLUME 85.1 fl (80.0-96.0); MONO # 0.3 10^3/uL (0.0-0.8); MONO % 3.6 % (2.0-8.0); NEUTROPHILS # 4.1 10^3/uL (1.5-8.5); NEUTROPHILS % 53.6 % (36.0-66.0); PLATELET COUNT, AUTOMATED 358 10^3/uL (150-450); RED BLOOD COUNT 4.56 10^6/uL (4.00-5.40); WHITE BLOOD COUNT 7.6 10^3/uL (4.0-10.0)
[2020-12-18 16:50] LABS: BLOOD UREA NITROGEN 8 MG/DL (7-18); CALCIUM LEVEL 9.5 MG/DL (8.5-10.1); CARBON DIOXIDE LEVEL 27 MEQ/L (21-32); CHLORIDE LEVEL 106 MEQ/L (98-107); CREATININE FOR GFR 0.77 MG/DL (0.55-1.30); GLOMERULAR FILTRATION RATE > 60.0 (>60); GLUCOSE, FASTING 80 MG/DL (70-100); POTASSIUM SERUM 4.1 MEQ/L (3.5-5.1); SODIUM LEVEL 139 MEQ/L (136-145)
[2020-12-18] MEDS ORDERED: KETOROLAC 60MG 2ML VIAL IM ONE (17:15)
--- NOTE | 2020-12-18 17:57 | REP ---
INDICATION: hx large ovarian cysts, period x 2 wks. COMPARISON: 01/04/2020 TECHNIQUE: Transvesical and transvaginal imaging FINDINGS: The uterus measures 8.2 x 3.8 x 4.1 cm. The parenchymal echo pattern is unchanged and again seen to be within normal limits. Once again, there is a specular reflection within the endometrial cavity consistent with an IUD. There is no free fluid in the cul-de-sac. Right ovary measures 4.8 x 3.1 x 4.2 cm. The right ovarian RI is 0.65. Within the right ovary there is a 3.8 x 3.5 x 2.2 cm sized anechoic structure which exhibits posterior wall enhancement and increased through transmission. The left ovary measures 2.1 x 1.1 x 1.7 cm and is within normal limits with an RI 0.54. Urinary bladder is empty. IMPRESSION: 1. Simple right ovarian cyst as described above. 2. IUD in place. <Electronically signed by Kofi Skinner > 12/18/20 [id number]
[2020-12-18] MEDS ORDERED: IBUP-1022 PO (18:57)
== END 2020-12-18 19:33 | disposition home or self-care (01) ==
LOC: M ED 14:53
DX: N92.0 Excessive and frequent menstruation with regular cycle (principal); N83.291 Other ovarian cyst, right side; Z97.5 Presence of (intrauterine) contraceptive device; E28.2 Polycystic ovarian syndrome; Z91.011 Allergy to milk products; Z91.013 Allergy to seafood; Z91.018 Allergy to other foods
CPT/HCPCS: 36415; 76830; 76856; 80048; 81001; 84702; 85025; 86850; 86900; 86901; 93976; 96372; 99284; J1885

== ENCOUNTER 2021-08-22 17:30 | Emergency (ER) | payer OTHER ==
[~2021-08-22] VITALS: Ht 162.6 cm; Wt 73.8 kg
[2021-08-22 17:30] VITALS: BP 135/67
[~2021-08-22 17:30] MED LIST changes: +IBUP-1022 PO
[2021-08-22] MEDS ORDERED: VITMTA PO (18:02)
== END 2021-08-22 21:20 | disposition left against medical advice (07) ==
LOC: M ED 17:30
DX: Z53.21 Procedure and treatment not carried out due to patient leaving prior to being seen by health care provider (principal)

== ENCOUNTER → 2021-08-27 | Outpatient (CLI) | payer OTHER ==
[~2021-08-27] MED LIST changes: +PROHANCE 279.3MG/ML 15ML VIAL As Ordered ONE; +VITMTA PO
== END ==
LOC: M RAD 15:13
PROVIDERS: ATTEND Obstetrics & Gynecology
DX: N83.202 Unspecified ovarian cyst, left side (principal)

== ENCOUNTER → 2022-02-12 | Outpatient (CLI) | payer OTHER ==
[~2022-02-12] MED LIST changes: -PROHANCE 279.3MG/ML 15ML VIAL As Ordered ONE
[2022-02-12 11:10] LABS: HEMATOCRIT 44.3 % (36.0-47.0); HEMOGLOBIN 14.5 g/dl (12.0-15.5); MEAN CORPUSCULAR HEMOGLOBIN 31.3 pg (27.0-33.0); MEAN CORPUSCULAR HGB CONC 32.7 g/dl (32.0-36.5); MEAN CORPUSCULAR VOLUME 95.5 fl (80.0-96.0); PLATELET COUNT, AUTOMATED 305 10^3/uL (150-450); RED BLOOD COUNT 4.64 10^6/uL (4.00-5.40); WHITE BLOOD COUNT 5.4 10^3/uL (4.0-10.0)
[2022-02-12 11:20] LABS: PERCENT SATURATION 53.6 % (13.2-45.0)
[2022-02-13 06:08] LABS: FOLATE 8.3 ng/mL (>3.0)
== END ==
LOC: M PLALAB 08:12
PROVIDERS: ATTEND Internal Medicine Hematology
DX: E61.1 Iron deficiency (principal)
CPT/HCPCS: 36415; 82607; 82728; 82746; 83550; 84466; 85027; 85046; G0463